=== PATIENT | female | born 1990 | race Caucasian/White ===

== ENCOUNTER 2024-01-23 00:21 | Observation (INO) | payer OTHER, SELFPAY ==
[2024-01-22 20:24] VITALS: BP 124/74
[2024-01-22 20:49] LABS: % Basophils 0.3 % (0-2); % Eosinophils 0.3 % (0-6); % Immature Granulocytes 0.7 % (0-0.5); % Lymphocytes 28.9 % (20.5-51.1); % Monocytes 7.4 % (1.7-9.3); % Neutrophils 62.4 % (42.2-75.2); Absolute Immature Granulocytes 0.1 10^3/uL (0-0.05); Absolute Monocytes 0.5 10^3/uL (0.1-0.6); Absolute Neutrophils 4.3 10^3/uL (1.4-6.5); Hematocrit 28.7 % (37.0-47.0); Hemoglobin 9.5 g/dL (12.0-16.0); Mean Corp Hgb Conc. 33.1 g/dL (33.0-37.0); Mean Corpuscular Hgb 27.9 pg (27.0-31.0); Mean Corpuscular Volume 84.2 fL (81.0-99.0); Mean Platelet Volume 9.2 fL (7.4-10.4); Nucleated Red Blood Cells % 0 %; Platelet Count 219 10^3/uL (130-400); Red Blood Cell Count 3.41 10^6/uL (4.20-5.40); Red Cell Dist. Width 13.1 % (11.5-14.5); White Blood Cell Count 6.9 10^3/uL (4.8-10.8)
[2024-01-22 21:04] LABS: ALT (SGPT) 14 U/L (0-35); AST (SGOT) 19 U/L (14-36); Albumin 3.3 g/dl (3.5-5.0); Alkaline Phosphatase 114 U/L (38-126); Blood Urea Nitrogen 6 mg/dl (7-17); Calcium 8.7 mg/dl (8.4-10.2); Carbon Dioxide 17 mmol/L (22-30); Chloride 103 mmol/L (98-107); Glucose 152 mg/dl (70-99); Potassium 3.4 mmol/L (3.5-5.1); Sodium 130 mmol/L (135-145); Total Bilirubin 0.3 mg/dl (0.2-1.3); Total Protein 6.2 g/dl (6.3-8.2); eGFR > 60.00
--- NOTE | 2024-01-22 21:33 | ED.GENMED ---
History of Present Illness
<Khalida Zarate PA-C - Last Filed: 01/23/24 01:12>
General
Chief Complaint: Fainting/Passed Out
Source: patient and records
Exam Limitations: none
Time Seen by Provider: 01/22/24 21:32
Nursing documentation reviewed up to this point in time: agreed with
Travel History
Have you had any contact with someone who has COVID-19?: No
Do you have any symptoms of coronavirus? Fever > 100 degrees, chills, cough, shortness of breath, sore throat, loss of taste or smell, muscle aches, or headache?: No
History of Present Illness
History of Present Illness:
33-year-old G1, P0 female presenting emergency department today following a syncopal episode. Patient states that she was at a restaurant today and started to feel dizzy, lightheaded. She started to see some visual changes. She decided to go up
to use the bathroom to splash water on her face when she felt very faint and her caught her. Her reports that she was unconscious for around 30 seconds. He notes that she was very pale. Patient came to it and has no other
symptoms. Patient states that she feels well now other than some fatigue. Patient denies any shortness of breath, chest pain. She does note some back pain. Patient denies any fevers or chills, upper respiratory symptoms. Patient states that her
has been unremarkable thus far and she has had no complications. Patient denies any headache.
Past History
<Khalida Zarate PA-C - Last Filed: 01/23/24 01:12>
Past History
ED Past Medical History: Psychiatric (Depression)
ED Past Surgical History: None
Social History
Tobacco: Non-smoker
Alcohol: Occasional
Drug: None
Review of Systems
<Khalida Zarate PA-C - Last Filed: 01/23/24 01:12>
Review of Systems
All Other Systems: ROS reviewed and negative except as documented in HPI and ROS
Phy Exam
<Khalida Zarate PA-C - Last Filed: 01/23/24 01:12>
Physical Exam
Physical Exam:
Vitals: Patient's vital signs are stable, she is not hypoxic, not tachycardic
General: Patient is well-appearing, no acute distress
Skin: Warm and dry, no rashes or lesions. Brisk cap refill.
Head: Normocephalic, atraumatic
Eyes: EOMs intact, sclera nonicteric.
Cardiac: Regular rate and rhythm, no murmurs
Pulm: Normal respiratory effort
Abdomen: Gravid uterus. heart tones 136. No abdominal tenderness.
Neuro: Cranial nerves II through XII intact, no focal neurologic deficits.
Course
<Khalida Zarate PA-C - Last Filed: 01/23/24 01:12>
Orders/Labs/Results
Orders:
Orders
01/22/24 20:27
Electrocardiogram (*1) Urgent
Reason for Study: Other
Other Reason for Exam: syncope
EKG- Treatment ONCE
01/22/24 20:39
Complete Blood Count/With Diff Urgent
Comprehensive Metabolic Panel Urgent
01/22/24 22:30
Heart Tones ONCE
01/22/24 23:08
Lactated Ringers [Lr] 1,000 ml IV BOLUS
Abnormal Lab Results
01/22/24
20:39
RBC 3.41 L 10^6/uL
(4.20-5.40)
Hgb 9.5 L g/dL
(12.0-16.0)
Hct 28.7 L %
(37.0-47.0)
Abs Immat Gran (auto) 0.1 H 10^3/uL
(0-0.05)
Immature Gran % 0.7 H %
(0-0.5)
Sodium 130 L mmol/L
(135-145)
Potassium 3.4 L mmol/L
(3.5-5.1)
Carbon Dioxide 17 L mmol/L
(22-30)
BUN 6 L mg/dl
(7-17)
Creatinine 0.4 L mg/dL
(0.6-1.0)
Glucose 152 H mg/dl
(70-99)
Total Protein 6.2 L g/dl
(6.3-8.2)
Albumin 3.3 L g/dl
(3.5-5.0)
01/22/24 20:39
01/22/24 20:39
Vital Signs
Initial and Last Documented VS:
Initial Vital Signs
Temp Pulse Resp BP Pulse Ox
97.8 F 91 18 124/74 100
01/22/24 20:24 01/22/24 20:24 01/22/24 20:24 01/22/24 20:24 01/22/24 20:24
Last Documented Vital Signs
Temp Pulse Resp BP Pulse Ox
98.0 F 96 18 121/68 99
01/23/24 00:34 01/23/24 00:34 01/23/24 00:34 01/23/24 00:34 01/23/24 00:34
<Harvey Balbuena, DO - Last Filed: 01/23/24 01:06>
Orders/Labs/Results
Orders:
Orders
01/22/24 20:27
Electrocardiogram (*1) Urgent
Reason for Study: Other
Other Reason for Exam: syncope
EKG- Treatment ONCE
01/22/24 20:39
Complete Blood Count/With Diff Urgent
Comprehensive Metabolic Panel Urgent
01/22/24 22:30
Heart Tones ONCE
01/22/24 23:08
Lactated Ringers [Lr] 1,000 ml IV BOLUS
Abnormal Lab Results
01/22/24
20:39
RBC 3.41 L 10^6/uL
(4.20-5.40)
Hgb 9.5 L g/dL
(12.0-16.0)
Hct 28.7 L %
(37.0-47.0)
Abs Immat Gran (auto) 0.1 H 10^3/uL
(0-0.05)
Immature Gran % 0.7 H %
(0-0.5)
Sodium 130 L mmol/L
(135-145)
Potassium 3.4 L mmol/L
(3.5-5.1)
Carbon Dioxide 17 L mmol/L
(22-30)
BUN 6 L mg/dl
(7-17)
Creatinine 0.4 L mg/dL
(0.6-1.0)
Glucose 152 H mg/dl
(70-99)
Total Protein 6.2 L g/dl
(6.3-8.2)
Albumin 3.3 L g/dl
(3.5-5.0)
01/22/24 20:39
01/22/24 20:39
Vital Signs
Initial and Last Documented VS:
Initial Vital Signs
Temp Pulse Resp BP Pulse Ox
97.8 F 91 18 124/74 100
01/22/24 20:24 01/22/24 20:24 01/22/24 20:24 01/22/24 20:24 01/22/24 20:24
Last Documented Vital Signs
Temp Pulse Resp BP Pulse Ox
98.0 F 96 18 121/68 99
01/23/24 00:34 01/23/24 00:34 01/23/24 00:34 01/23/24 00:34 01/23/24 00:34
<Khalida Zarate PA-C - Last Filed: 01/23/24 01:12>
MDM/Problems Addressed
Differential Diagnosis Includes:
Differentials include heart block, vasovagal syncope, orthostatic hypotension, hyponatremia, infection, increased vagal tone of , autonomic instability, pulmonary embolism, intra-abdominal bleeding
MDM/Problems Addressed:
Syncope
Chronic conditions affecting care:
n/a
Acute Exacerbation and/or Progression of Chronic Illness:
n/a
<Khalida Zarate PA-C - Last Filed: 01/23/24 01:12>
*Critical Care Note
Total Time (30-74mins, 75-104mins- exclusive of procedures): Not Applicable
<Khalida Zarate PA-C - Last Filed: 01/23/24 01:12>
Patient Management
Escalation/DeEscalation of care consider admission/obs:
33-year-old G1, P0 female presenting emergency department today following a syncopal episode. Her physical exam is unremarkable. Her EKG demonstrates normal sinus rhythm with no ischemic changes, no heart block. Patient's CBC demonstrates a
hemoglobin of 9.5, but patient states it is around her baseline. Patient CMP is recently back acidosis, no clear etiology of this at this time. Patient was given a liter bolus of lactated Ringer's. Patient has no symptoms of DVT, no chest pain,
no shortness of breath, and her vitals are stable, no indication for D-dimer or CT at this time. OB on-call was consulted who recommended admission for nonstress testing. Patient in agreement with plan.
ED Attending Note
<Khalida Zarate PA-C - Last Filed: 01/23/24 01:12>
-
Portions of this chart may have been created with voice recognition software.� Occasional wrong word or��sound alike� substitutions may have occurred due to the inherent limitations of voice recognition software.
<Harvey Balbuena, DO - Last Filed: 01/23/24 01:06>
ED Attending Note
Patient seen and examined by attending physician: Yes
I performed a history and physical exam of patient and discussed management with resident, I reviewed resident's note and agree with documented findings and plan of care.: Yes
ED Attending Note:
I have reviewed and agree with patient treatment plan by Khalida Zarate. My exam revealed 33-year-old female at 35 weeks with gravid uterus. Clear lungs, cardiovascular exam S1, S2, no S3/S4, no murmur. Mild metabolic acidosis. 1 L LR
given. Discussed with OB, who recommended patient be observed and get NST. Patient and fianc� agreed.
Discharge Plan
Departure
Patient Disposition: LDRP
Date of Disposition: 01/23/24
Time of Disposition: 00:00
Presentation/result/management discussed w/ accepting MD/DO: OBGYN
Patient with high blood pressure during this ER visit?: No
Discharge Problem:
Syncope
Interventions
Interventions:
*Risk Screen - Suicide Last Done: 01/22/24 20:30
*General Assessment Last Done: 01/22/24 20:30
*Neglect/Abuse Screening Last Done: 01/22/24 20:30
ED- Fall Risk Assessment Last Done: 01/23/24 00:07
*Nursing Disposition Last Done: 01/23/24 00:07
ED- Cardiac Assessment Last Done: 01/22/24 22:36
ED- Neurological Assessment Last Done: 01/22/24 22:36
Discharge Date and Time
Discharge Date/Time: 01/23/24 00:08
[2024-01-22 22:36] VITALS: BP 100/73
[2024-01-22] MEDS: LR 1000 IV (23:22)
[2024-01-23 00:34] VITALS: BP 121/68; BMI 28.4
== END 2024-01-23 01:32 | disposition home or self-care (01) ==
LOC: LDRP 00:21
PROVIDERS: ADMITTING PHYSICIAN Obstetrics & Gynecology; EMERGENCY PHYSICIAN Emergency Medicine; FAMILY PHYSICIAN Emergency Medicine
DX: R55 Syncope and collapse (principal); R42 Dizziness and giddiness; O99.343 Other mental disorders complicating pregnancy, third trimester; F32.A Depression, unspecified; Z3A.35 35 weeks gestation of pregnancy; F41.9 Anxiety disorder, unspecified; M54.9 Dorsalgia, unspecified; E87.20 Acidosis, unspecified; O26.893 Other specified pregnancy related conditions, third trimester
CPT/HCPCS: 80053; 85025; 93005; 96360; 99284; G0378